=== PATIENT | female | born 1970 | race Caucasian/White ===

== ENCOUNTER 2022-06-26 15:54 | Outpatient (RCR) | payer OTHER ==
[~2022-06-26 15:54] MED LIST: ADVIL PO; AJOVY225 MG/1.5 SQ; MOTRIN PO; RIZATRIPTAN10 MG PO; TREXIMET 85-501 EACH PO
== END 2022-07-01 ==
LOC: PT 15:54
PROVIDERS: ATTEND Orthopaedic Surgery
DX: S83.232A Complex tear of medial meniscus, current injury, left knee, initial encounter (principal)
CPT/HCPCS: 97032; 97110 ×7; G0283 ×4

== ENCOUNTER 2022-07-17 15:00 | Outpatient (RCR) | payer OTHER | END 2022-07-29 | LOC: PT 15:00 | PROVIDERS: ATTEND Orthopaedic Surgery | DX: S83.232A Complex tear of medial meniscus, current injury, left knee, initial encounter (principal) ==

== ENCOUNTER 2022-08-19 10:58 | Outpatient (RCR) | payer OTHER | END 2022-08-29 | LOC: PT 10:58 | PROVIDERS: ATTEND Orthopaedic Surgery | DX: S83.232A Complex tear of medial meniscus, current injury, left knee, initial encounter (principal) ==

== ENCOUNTER 2022-09-25 10:57 | Outpatient (RCR) | payer OTHER | END 2022-09-28 | LOC: PT 10:57 | PROVIDERS: ATTEND Orthopaedic Surgery | DX: S83.232A Complex tear of medial meniscus, current injury, left knee, initial encounter (principal) ==